=== PATIENT | female | born 1990 | race Two or more races ===

== ENCOUNTER 2023-12-26 08:11 | Outpatient (CLI) | payer OTHER | END 2023-12-26 08:13 | disposition home or self-care (01) | LOC: PRENATAL 08:11 | PROVIDERS: ATTEND Obstetrics & Gynecology Maternal & Fetal Medicine | DX: O35.9XX0 Maternal care for (suspected) fetal abnormality and damage, unspecified, not applicable or unspecified (principal); O35.3XX0 Maternal care for (suspected) damage to fetus from viral disease in mother, not applicable or unspecified; O44.02 Complete placenta previa NOS or without hemorrhage, second trimester; O99.282 Endocrine, nutritional and metabolic diseases complicating pregnancy, second trimester; O34.12 Maternal care for benign tumor of corpus uteri, second trimester; O28.1 Abnormal biochemical finding on antenatal screening of mother; O34.219 Maternal care for unspecified type scar from previous cesarean delivery; Z3A.19 19 weeks gestation of pregnancy ==

== ENCOUNTER 2024-02-27 09:33 | Outpatient (CLI) | payer OTHER | END 2024-02-27 09:34 | disposition home or self-care (01) | LOC: PRENATAL 09:33 | PROVIDERS: ATTEND Obstetrics & Gynecology Maternal & Fetal Medicine | DX: O26.849 Uterine size-date discrepancy, unspecified trimester (principal); O28.1 Abnormal biochemical finding on antenatal screening of mother; O99.280 Endocrine, nutritional and metabolic diseases complicating pregnancy, unspecified trimester; O34.10 Maternal care for benign tumor of corpus uteri, unspecified trimester; Z3A.28 28 weeks gestation of pregnancy ==

== ENCOUNTER → 2024-04-11 09:02 | Outpatient (CLI) | payer OTHER | END | disposition home or self-care (01) | LOC: PRENATAL 09:02 | PROVIDERS: ATTEND Obstetrics & Gynecology Maternal & Fetal Medicine | DX: O26.849 Uterine size-date discrepancy, unspecified trimester (principal); O36.8199 Decreased fetal movements, unspecified trimester, other fetus; O28.1 Abnormal biochemical finding on antenatal screening of mother; O34.219 Maternal care for unspecified type scar from previous cesarean delivery; O34.10 Maternal care for benign tumor of corpus uteri, unspecified trimester; O26.619 Liver and biliary tract disorders in pregnancy, unspecified trimester; Z3A.34 34 weeks gestation of pregnancy ==